=== PATIENT | female | born 1990 | race Caucasian/White ===

== ENCOUNTER 2017-07-04 10:21 | Inpatient (IN) | payer MEDICAID ==
[2017-07-04] MEDS: LACTATED RINGER'S 1,000 ML IV ×2 (11:51→19:40)
[2017-07-04] MEDS ORDERED: OXYTOCIN 30 UNITS/LR 500 ML IV ×4 (12:00→21:00)
[2017-07-04] MEDS ORDERED: MISOPROSTOL 200 MCG TAB PR ×2 (12:00→21:00)
[2017-07-04] MEDS ORDERED: CARBOPROST 250 MCG INJ IM ×2 (12:00→21:00)
[2017-07-04] MEDS ORDERED: METHYLERGONOVINE 0.2 MG INJ IM ×2 (12:00→21:00)
[2017-07-04 12:56] LABS: INR 0.89; PROTIME 12.1 Sec (11.9-14.9); PT RATIO 0.9
[2017-07-04 12:57] LABS: PARTIAL THROMBOPLASTIN TIME 28.6 Sec (25.0-35.0)
[2017-07-04 13:35] LABS: ADD MAN DIFF? NO
[2017-07-04 13:36] LABS: ABNORMAL IP MESSAGE 1; BASOPHILS % 0.2 % (0.0-2.0); EOSINOPHILS % 0.2 % (0.0-7.0); HEMATOCRIT 34.8 % (37.0-47.0); HEMOGLOBIN 11.1 g/dl (12.0-16.0); LYMPHOCYTES # 0.7 10^3/ul (0.8-2.9); LYMPHOCYTES % 5.6 % (15.0-51.0); MEAN CORPUSCULAR HEMOGLOBIN 25.9 pg (29.0-33.0); MEAN CORPUSCULAR HGB CONC 31.9 g/dl (32.0-37.0); MEAN CORPUSCULAR VOLUME 81.1 fl (82.0-101.0); MONOCYTE # 0.8 10^3/ul (0.3-0.9); MONOCYTES % 6.3 % (0.0-11.0); NEUTROPHIL # 10.9 10^3/ul (1.6-7.5); NEUTROPHILS % 86.8 % (39.0-77.0); PLATELET COUNT 141 10^3/UL (140-415); RED BLOOD COUNT 4.29 10^6/ul (4.20-5.40); RED CELL DISTRIBUTION WIDTH 16.3 % (11.5-14.5)
[2017-07-04 13:36] LABS: WHITE BLOOD COUNT 12.6 10^3/ul (4.8-10.8)
[2017-07-04 13:40] LABS: MEAN PLATELET VOLUME 12.4 fl (7.4-10.4)
[2017-07-04 15:08] LABS: RAPID PLASMA REAGIN NONREACTIVE (NR)
[2017-07-04] MEDS: CITRIC ACID/SODIUM CITRATE 15 ML CUP PO (16:30)
[2017-07-04] MEDS ORDERED: METOCLOPRAMIDE 10 MG INJ (16:39)
[2017-07-04] MEDS ORDERED: ONDANSETRON 4 MG INJ (16:39)
[2017-07-04] MEDS ORDERED: morphine SULFATE/PF (10 MG/10 ML) INJ (16:39)
[2017-07-04] MEDS ORDERED: KETOROLAC 30 MG INJ ×2 (16:39→19:32)
[2017-07-04] MEDS ORDERED: PHENYLephrine (100 MCG/ML) 5ML SYG (16:56)
[2017-07-04] MEDS ORDERED: PROPOFOL 20 ML (17:11)
[2017-07-04 17:38] LABS: AMPHETAMINE/METHAMPHETAMINE NEGATIVE (NEGATIVE); BARBITURATES NEGATIVE (NEGATIVE); BENZODIAZEPINES NEGATIVE (NEGATIVE); CANNABINOIDS NEGATIVE (NEGATIVE); COCAINE NEGATIVE (NEGATIVE); OPIATES NEGATIVE (NEGATIVE)
[2017-07-04] MEDS: OXYTOCIN 30 UNITS/LR 500 ML IV ×2 (18:17→20:14)
[2017-07-04] MEDS: CEFAZOLIN 2 GM/50 ML (PMX) 50 ML IV (18:26)
[2017-07-04] MEDS ORDERED: morphine (1 MG/ML) 10ML SYRINGE IV ×3 (19:30)
[2017-07-04] MEDS ORDERED: morphine 4 MG/ML VIAL IV (19:30)
[2017-07-04] MEDS ORDERED: ONDANSETRON 4 MG INJ IV ×3 (19:30→21:00)
[2017-07-04] MEDS ORDERED: NALOXONE (0.4 MG/ML) INJ IV (19:30)
[2017-07-04] MEDS ORDERED: DIPHENHYDRAMINE 50 MG INJ IV ×2 (19:30→21:00)
[2017-07-04] MEDS ORDERED: morphine 2 MG INJ IV ×2 (19:30)
[2017-07-04] MEDS: KETOROLAC 30 MG INJ IV (19:47)
[2017-07-04] MEDS ORDERED: ZOLPIDEM 5 MG TAB PO (21:00)
[2017-07-04] MEDS: SENNA/DOCUSATE NA (8.6MG/50MG) TAB PO (21:00)
[2017-07-04] MEDS ORDERED: OXYCODONE/ACETAMINOPHEN (5/325) TAB PO (21:00)
[2017-07-05] MEDS: KETOROLAC 30 MG INJ IV ×3 (04:06→17:54)
[2017-07-05] MEDS: SENNA/DOCUSATE NA (8.6MG/50MG) TAB PO ×2 (08:39→21:11)
[2017-07-05 08:50] LABS: ADD MAN DIFF? NO
[2017-07-05 09:03] LABS: WHITE BLOOD COUNT 11.6 10^3/ul (4.8-10.8)
[2017-07-05 09:03] LABS: ABNORMAL IP MESSAGE 1; BASOPHILS % 0.1 % (0.0-2.0); EOSINOPHILS # 0.2 10^3/ul (0.0-0.5); EOSINOPHILS % 1.4 % (0.0-7.0); HEMATOCRIT 24.6 % (37.0-47.0); HEMOGLOBIN 7.9 g/dl (12.0-16.0); LYMPHOCYTES % 8.4 % (15.0-51.0); MEAN CORPUSCULAR HEMOGLOBIN 26.3 pg (29.0-33.0); MEAN CORPUSCULAR HGB CONC 32.1 g/dl (32.0-37.0); MEAN PLATELET VOLUME 13.4 fl (7.4-10.4); MONOCYTE # 1.1 10^3/ul (0.3-0.9); MONOCYTES % 9.5 % (0.0-11.0); NEUTROPHIL # 9.3 10^3/ul (1.6-7.5); PLATELET COUNT 125 10^3/UL (140-415); RED CELL DISTRIBUTION WIDTH 16.3 % (11.5-14.5)
[2017-07-05] MEDS: LACTATED RINGER'S 1,000 ML IV (15:42)
[2017-07-05] MEDS: IBUPROFEN 600 MG TAB PO ×2 (18:00→23:25)
[2017-07-06] MEDS: OXYCODONE/ACETAMINOPHEN (5/325) TAB PO ×3 (04:47→20:42)
[2017-07-06] MEDS: IBUPROFEN 600 MG TAB PO ×3 (05:34→17:57)
[2017-07-06] MEDS: INFLUENZA VIRUS VACCINE 0.5 ML (DISPENSING) IM* (09:00)
[2017-07-06] MEDS: SENNA/DOCUSATE NA (8.6MG/50MG) TAB PO ×2 (09:50→21:00)
[2017-07-07] MEDS: IBUPROFEN 600 MG TAB PO ×3 (00:40→12:45)
[2017-07-07] MEDS: OXYCODONE/ACETAMINOPHEN (5/325) TAB PO ×2 (02:11→10:53)
[2017-07-07] MEDS: SENNA/DOCUSATE NA (8.6MG/50MG) TAB PO (09:00)
[2017-07-07] MEDS: DIPHTH/TET/ACEL PERTUSS (ADULT) 0.5 ML VIAL IM* (09:00)
[2017-07-07] MEDS: LANOLIN 7 GM TUBE TOP (10:25)
== END 2017-07-07 15:45 | disposition home or self-care (01) | DRG 766 ==
LOC: OBT 10:21 → L-D 10:21 → OBT 11:34 → L-D 11:30 → PP1 20:51
PROC: 10D00Z1 Extraction of Products of Conception, Low, Open Approach (ICD-10-PCS; principal; 2017-07-04)
PROC: 3E033VJ Introduction of Other Hormone into Peripheral Vein, Percutaneous Approach (ICD-10-PCS; 2017-07-04)
DX: O34.211 Maternal care for low transverse scar from previous cesarean delivery (principal); Z37.0 Single live birth; Z3A.38 38 weeks gestation of pregnancy
CPT/HCPCS: 80307; 85025; 85610; 85730; 86592; 86850; 86900; 86901; 90686; 90715; 94760; 99464

== ENCOUNTER 2017-10-13 22:26 | Emergency (ER) | payer MEDICAID ==
[2017-10-14 01:16] LABS: ADD UMIC NO; UR ASCORBIC ACID NEGATIVE (NEGATIVE); UR BACTERIA FEW /HPF (NONE SEEN); UR BILIRUBIN (Dip) NEGATIVE (NEGATIVE); UR BLOOD (Dip) NEGATIVE (NEGATIVE); UR CLARITY SLIGHTLY CLOUDY (CLEAR); UR COLOR YELLOW (YELLOW); UR GLUCOSE (Dip) NEGATIVE (NEGATIVE); UR KETONES (Dip) NEGATIVE (NEGATIVE); UR LEUKOCYTE ESTERASE (Dip) NEGATIVE Leu/ul (NEGATIVE); UR MUCUS MODERATE /HPF (NONE SEEN); UR NITRITE (Dip) NEGATIVE (NEGATIVE); UR RBC 2 /HPF (0-5); UR SQUAMOUS EPITHELIAL CELL FEW /HPF (FEW); UR TOTAL PROTEIN (Dip) NEGATIVE (NEGATIVE); UR UROBILINOGEN (Dip) NEGATIVE (NEGATIVE); UR WBC 1 /HPF (0-5)
== END 2017-10-14 03:04 | disposition home or self-care (01) ==
LOC: FTE 10-14 03:04
DX: R10.2 Pelvic and perineal pain (principal)
CPT/HCPCS: 76856; 81001; 81003; 81025; 87591; 99284-25

== ENCOUNTER 2018-07-10 13:38 | Emergency (ER) | payer OTHER, MEDICAID ==
[2018-07-10 14:26] LABS: URINE BLOOD (Dip) POC Trace-intact (NEGATIVE); URINE GLUCOSE (Dip) POC Negative (NEGATIVE); URINE KETONES (Dip) POC Negative (NEGATIVE); URINE LEUKOCYTE EST (Dip) POC Negative (NEGATIVE); URINE NITRITE (Dip) POC Negative (NEGATIVE); URINE TOTAL PROTEIN POC Negative (NEGATIVE)
[2018-07-10 14:26] LABS: URINE PH (Dip) POC 5.5 (5.0-8.5)
== END 2018-07-10 14:41 | disposition home or self-care (01) ==
LOC: FTE 13:38
DX: N76.0 Acute vaginitis (principal)
CPT/HCPCS: 81003; 81025; 99283